=== PATIENT | female | born 1990 | race Caucasian/White ===

== ENCOUNTER → 2022-06-09 08:54 | Outpatient (CLI) | payer BC, SELFPAY ==
--- NOTE | ~2022-06-09 | US_ITS ---
EXAMINATION: US thyroid DATE: 06/09/2022 09:11 INDICATION: Nontoxic goiter, unspecified. TECHNIQUE: Multiple ultrasound images of the thyroid were obtained. COMPARISON: None. FINDINGS: The right thyroid lobe measures 4.3 x 0.9 x 1.6 cm. The left thyroid lobe measures 5.1 x 1.2 x 1.6 c m. There is normal echotexture and echogenicity throughout the thyroid gland. No discrete nodules id entified. Normal vascular flow is present. IMPRESSION: 1. Normal thyroid. Reviewed, dictated and finalized at location B. IMPRESSION: 1. Normal thyroid.
== END ==
PROVIDERS: PCP Family Medicine; Visit Provider Family Medicine
DX: E04.9 Nontoxic goiter, unspecified (principal)
CPT/HCPCS: 76536

== ENCOUNTER 2022-10-27 09:13 | Outpatient (CLI) | payer OTHER, SELFPAY ==
[2022-10-27 16:59] LABS: Iron 86 ug/dL (37-170)
[2022-10-27 17:12] LABS: Percent Iron Saturation 19 % (20-50)
[2022-10-27 17:20] LABS: Free T4 Free Thyroxine 1.48 ng/mL (0.78-2.19); Vitamin D 25 Hydroxy 47.1 ng/mL
[2022-10-27 17:33] LABS: Thyroid Stimulating Hormone 0.888 uIU/mL (0.465-4.680)
[2022-10-27 17:56] LABS: Transferrin 339 mg/dL (206-381)
[2022-10-31 04:38] LABS: Thyroid Peroxidase Antibodies <1 IU/mL (<9)
[2022-10-31 16:56] LABS: Triiodothyronine T3 Free 3.1 pg/mL (2.3-4.2)
== END 2022-10-27 09:14 | disposition home or self-care (01) ==
LOC: ANHWCLAB 09:15
PROVIDERS: PCP Family Medicine; Visit Provider Internal Medicine Endocrinology, Diabetes & Metabolism
DX: E03.9 Hypothyroidism, unspecified (principal); E04.9 Nontoxic goiter, unspecified; L65.9 Nonscarring hair loss, unspecified; R53.83 Other fatigue; R79.89 Other specified abnormal findings of blood chemistry
CPT/HCPCS: 36415; 82306; 83540; 83550; 84439; 84443; 84466; 84481; 86376